=== PATIENT | male | born 1970 | race Two or more races ===

== ENCOUNTER 2017-01-29 17:35 | Emergency (ER) | payer OTHER ==
[~2017-01-29] VITALS: Ht 175.3 cm; Wt 88.5 kg
[2017-01-29 18:10] VITALS: BP 133/87
[2017-01-29] MEDS ORDERED: Acetaminophen 500mg (ES) tab PO ONE (18:15)
[2017-01-29] MEDS ORDERED: IBUPROFEN600 MG ORAL (19:23)
[2017-01-29] MEDS ORDERED: CYCLOBENZAPRINE10 MG ORAL (19:23)
[2017-01-29 19:45] VITALS: BP 133/87
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
== END 2017-01-29 19:34 | disposition home or self-care (01) ==
LOC: EMR 18:20
DX: S16.1XXA Strain of muscle, fascia and tendon at neck level, initial encounter (principal); S40.012A Contusion of left shoulder, initial encounter; S39.012A Strain of muscle, fascia and tendon of lower back, initial encounter; V43.52XA Car driver injured in collision with other type car in traffic accident, initial encounter; Y93.9 Activity, unspecified; Y92.410 Unspecified street and highway as the place of occurrence of the external cause
CPT/HCPCS: 72020; 72125; 99284